=== PATIENT | female | born 1985 | race Caucasian/White ===

== ENCOUNTER 2020-05-08 15:21 | Emergency (ER) | payer OTHER ==
[2020-05-08 15:44] VITALS: BP 124/80; PULSE 103; TEMP 98.2; BMI 28.5
[2020-05-08] MEDS ORDERED: ACETAMINOPHEN 500 MG TABLET (FP) ONE (17:21)
[2020-05-08] MEDS ORDERED: ALBUTEROL SO4 HFA INHALER IH ONE ×2 (17:24)
[2020-05-08 18:04] LABS: ARTERIAL BLD GAS O2 SATURATION 96.8 mmHg (95-98); ARTERIAL BLOOD GAS BASE EXCESS 0.2 mmol/L (-2-2); ARTERIAL BLOOD GAS PO2 84.3 mmHg (80-100); ARTERIAL BLOOD GAS pH 7.446 (7.350-7.450)
[2020-05-08 18:05] LABS: ALLENS TEST POSITIVE
== END 2020-05-08 19:31 | disposition home or self-care (01) ==
LOC: JERFT 15:21
PROC: 3E0F7GC Introduction of Other Therapeutic Substance into Respiratory Tract, Via Natural or Artificial Opening (ICD-10-PCS; principal; 2020-05-08)
DX: J70.5 Respiratory conditions due to smoke inhalation (principal)
CPT/HCPCS: 36600; 71046-TC-FY; 82375; 82803; 93005; 93010; 99284-25

== ENCOUNTER 2020-12-24 00:48 | Emergency (ER) | payer OTHER ==
[2020-12-24 01:04] VITALS: BP 102/69; PULSE 64; TEMP 97.9; BMI 27.3
[2020-12-24] MEDS ORDERED: ACETAMINOPHEN 325 MG TABLET (FP) PO ONE (02:16)
[2020-12-24] MEDS ORDERED: KETOROLAC TROMETHAMINE 30 MG/1 ML VIAL IM ONE (02:17)
[2020-12-24] MEDS ORDERED: KETOROLAC TROMETHAMINE 30 MG/1 ML VIAL ONE (02:26)
[2020-12-24] MEDS ORDERED: ACETAMINOPHEN 325 MG TABLET (FP) ONE (02:26)
== END 2020-12-24 04:00 | disposition home or self-care (01) ==
LOC: JER 00:48
PROC: 3E023GC Introduction of Other Therapeutic Substance into Muscle, Percutaneous Approach (ICD-10-PCS; principal; 2020-12-24)
DX: M25.562 Pain in left knee (principal)
CPT/HCPCS: 73564-TC-LT-FY; 99284-25

== ENCOUNTER 2021-10-11 13:55 | Emergency (ER) | payer OTHER ==
[2021-10-11 14:07] VITALS: PULSE 116; TEMP 97; BMI 32.1
[2021-10-11 14:09] VITALS: BP 112/80
== END 2021-10-11 15:15 | disposition home or self-care (01) ==
LOC: JER 13:55
DX: O30.009 Twin pregnancy, unspecified number of placenta and unspecified number of amniotic sacs, unspecified trimester (principal); Z3A.00 Weeks of gestation of pregnancy not specified
CPT/HCPCS: 99283-25

== ENCOUNTER 2023-12-12 12:12 | Emergency (ER) | payer OTHER ==
[2023-12-12 12:30] VITALS: BP 105/64; PULSE 57; RESP 20; TEMP 97.5; BMI 28.3
[2023-12-12 14:34] LABS: BASO % 0.5 % (0-2.0); EOS % 0.8 % (0-4.5); HEMATOCRIT 39.3 % (32.4-45.2); HEMOGLOBIN 13.1 GM/dL (10.7-15.3); LYMPH % 38.6 % (8-40); MCH 32.1 pg (25.7-33.7); MCHC 33.3 g/dl (32.0-36.0); MEAN CELL VOLUME 96.5 fl (80-96); MEAN PLT VOLUME 7.6 fl (7.5-11.1); MONO % 4.9 % (3.8-10.2); NEUT % 55.2 % (42.8-82.8); PLATELET COUNT 265 10^3/uL (134-434); RBC 4.07 M/mm3 (3.60-5.2); RDW 13.8 % (11.6-15.6); WHITE BLOOD COUNT 6.1 K/mm3 (4.0-10.0)
[2023-12-12] MEDS ORDERED: diphenhydrAMINE HCL 25 MG CAPSULE (FP) PO ONE (14:49)
[2023-12-12] MEDS ORDERED: methylPREDNISolone NA SUCC 125 MG/2 ML VIAL ONE (14:49)
[2023-12-12 14:54] LABS: POTASSIUM 4.4 mmol/L (3.5-5.1)
[2023-12-12 14:56] LABS: CALCIUM 8.8 mg/dL (8.5-10.1)
[2023-12-12 14:57] LABS: BLOOD UREA NITROGEN 10.8 mg/dL (7-18)
[2023-12-12 15:00] LABS: CREATININE 0.7 mg/dL (0.55-1.3)
[2023-12-12 15:01] LABS: BILIRUBIN,TOTAL 0.7 mg/dL (0.2-1); TOT PROT 7.2 g/dl (6.4-8.2)
[2023-12-12 15:04] LABS: N-TERMINAL BNP 84.8 pg/ml (5-125)
[2023-12-12] MEDS: diphenhydrAMINE HCL 50 MG CAPSULE PO ONE (15:08)
[2023-12-12] MEDS: methylPREDNISolone NA SUCC 125 MG/2 ML VIAL IVPUSH ONE (15:08)
[2023-12-12] MEDS: methylPREDNISolone NA SUCC 125 MG/2 ML VIAL IM ONE (15:08)
== END 2023-12-12 15:51 | disposition home or self-care (01) ==
LOC: JER 12:12
PROC: 3E033GC Introduction of Other Therapeutic Substance into Peripheral Vein, Percutaneous Approach (ICD-10-PCS; principal; 2023-12-12)
DX: R21 Rash and other nonspecific skin eruption (principal); L29.9 Pruritus, unspecified; T44.3X5A Adverse effect of other parasympatholytics [anticholinergics and antimuscarinics] and spasmolytics, initial encounter; R06.02 Shortness of breath
CPT/HCPCS: 36415; 80053; 83880; 84484; 85025; 93005; 93010; 99284-25